=== PATIENT | female | born 1950 | race Caucasian/White ===

== ENCOUNTER 2024-02-22 19:58 | Emergency (ER) | payer MEDICARE, BC, SELFPAY ==
[2024-02-22] VITALS (24 sets, daily range): BP systolic 184–233; BP diastolic 90–119; BMI 25.3
[2024-02-22 20:29] LABS: % Basophils 0.6 % (0-2); % Eosinophils 2.2 % (0-6); % Immature Granulocytes 0.3 % (0-0.5); % Lymphocytes 43.9 % (20.5-51.1); % Monocytes 8.8 % (1.7-9.3); % Neutrophils 44.2 % (42.2-75.2); Absolute Eosinophils 0.1 10^3/uL (0-0.7); Absolute Lymphocytes 2.9 10^3/uL (1.2-3.4); Absolute Monocytes 0.6 10^3/uL (0.1-0.6); Absolute Neutrophils 2.9 10^3/uL (1.4-6.5); Hematocrit 36.9 % (37.0-47.0); Hemoglobin 12.2 g/dL (12.0-16.0); Mean Corp Hgb Conc. 33.1 g/dL (33.0-37.0); Mean Corpuscular Hgb 28.7 pg (27.0-31.0); Mean Corpuscular Volume 86.8 fL (81.0-99.0); Mean Platelet Volume 10.4 fL (7.4-10.4); Nucleated Red Blood Cells % 0 %; Platelet Count 236 10^3/uL (130-400); Red Blood Cell Count 4.25 10^6/uL (4.20-5.40); Red Cell Dist. Width 14.3 % (11.5-14.5); White Blood Cell Count 6.5 10^3/uL (4.8-10.8)
[2024-02-22 20:41] LABS: ALT (SGPT) 18 U/L (0-35); AST (SGOT) 27 U/L (14-36); Albumin 4.5 g/dl (3.5-5.0); Alkaline Phosphatase 128 U/L (38-126); Blood Urea Nitrogen 24 mg/dl (7-17); Calcium 10.1 mg/dl (8.4-10.2); Carbon Dioxide 25 mmol/L (22-30); Chloride 104 mmol/L (98-107); Estimated Creatinine Clearance 39 ml/min; Glucose 101 mg/dl (70-99); Potassium 4.4 mmol/L (3.5-5.1); Sodium 141 mmol/L (135-145); Total Bilirubin 0.4 mg/dl (0.2-1.3); Total Protein 7.2 g/dl (6.3-8.2)
[2024-02-22] MEDS: ZOFRAN 4 MG IV (21:15)
[2024-02-22] MEDS: DILAUDID 0.5 MG IV ×2 (21:15→22:17)
--- NOTE | 2024-02-22 21:43 | ED.GENMED ---
History of Present Illness
General
Chief Complaint: Fall
Time Seen by Provider: 02/22/24 20:58
History of Present Illness
History of Present Illness:
TIME OF INITIAL ENCOUNTER: 9:30 PM
HPI: Patient came in by ambulance as she was at her daughter's house and missed the last step due to poor lighting. She primarily complains of pain at the left humerus region. She denies any other injury. She denies striking her head. The pain
is described as severe. She has no chest or abdominal pain.
EXAM:
GENERAL: Well appearing but in moderate distress due to pain
CERVICAL SPINE: No midline c-spine tenderness with excellent AROM
HEAD: No evidence of craniofacial trauma
CHEST: No chest wall tenderness, normal heart sounds
LUNGS: Equal lung sounds, no respiratory distress
ABDOMEN: No abdominal tenderness, no peritoneal signs
EXTREMITIES: Markedly decreased active range of motion at the left shoulder due to pain, there is no evidence of dislocation, there is marked tenderness to the mid and proximal left humerus
NEURO: Excellent strength all extremities, appropriate mental status, normal speech/language
NUMBER AND COMPLEXITY OF PROBLEMS ADDRESSED AT THE ENCOUNTER
� Chronic conditions affecting care: High blood pressure
� Acute Exacerbation and/or Progression of Chronic Illness: This is an acute problem
� Differential Diagnosis includes: Humerus fracture, proximal humerus/shoulder fracture
AMOUNT AND/OR COMPLEXITY OF DATA TO BE REVIEWED AND ANALYZED
� I performed an independent evaluation of and my interpretation is:
EKG:
CT:
X-rays: X-ray shows displaced angulated midshaft fracture of the left humerus
Laboratory Studies: CBC is unremarkable, creatinine 1.2
Other:
� Review of other/old records: No old records available for review
� Clinical information was obtained by an independent historian: I spoke to the daughter at bedside
� Prescriptions/Medications Considered but not given:
� Further testing considered but not performed:
RISK OF COMPLICATIONS AND/OR MORBIDITY OR MORTALITY OF PATIENT MANAGEMENT
� Social determinants of health affecting care: Lives at home
� Discussion with other providers: Sent message to Dr. Simmons, on-call for Linda (family preference)�no return message
� Escalation of care including admission/observation vs risk of discharge considered: The patient was initially given IV Dilaudid for pain.
ANY OTHER UPDATES:
11:11 PM: Procedural sedation was used and I reduced the midshaft the left humerus fracture.
12 AM: Although the patient does have some ongoing pain she is neurovascularly intact with no sensory or distal motor deficits
Phy Exam
Physical Exam
Physical Exam:
See HPI
Course
Orders/Labs/Results
Orders:
Orders
02/22/24 20:21
CMP [Comprehensive Metabolic Panel] Urgent
Complete Blood Count/With Diff Urgent
02/22/24 20:26
CR Humerus - Left Min 2 Views* Urgent
Comment:
Reason For Exam: S/P fall left upper arm pain
Shoulder, Left, Trauma CR [CR Shoulder, Trauma - Left] Urgent
Comment:
Reason For Exam: S/P fall left upper arm pain.
02/22/24 20:58
HYDROmorphone [Dilaudid] 0.5 mg IV NOW STA
Ondansetron Injectable [Zofran] 4 mg IV NOW STA
02/22/24 21:43
HYDROmorphone [Dilaudid] 0.5 mg IV NOW STA
02/22/24 22:49
Propofol [Diprivan] 20 ml .ROUTE .STK-MED
02/22/24 23:18
Humerus, Left 2 Views [CR Humerus - Left Min 2 Views*] Urgent
Comment: portable
Reason For Exam: post reduction
Abnormal Lab Results
02/22/24
20:21
Hct 36.9 L %
(37.0-47.0)
BUN 24 H mg/dl
(7-17)
Creatinine 1.2 H mg/dL
(0.6-1.0)
Glucose 101 H mg/dl
(70-99)
Alkaline Phosphatase 128 H U/L
(38-126)
02/22/24 20:21
02/22/24 20:21
Vital Signs
Initial and Last Documented VS:
Initial Vital Signs
BP
231/109
02/22/24 20:01
Last Documented Vital Signs
Temp Pulse Resp BP Pulse Ox
97.7 F 81 22 205/107 98
02/22/24 23:37 02/22/24 23:52 02/22/24 23:52 02/22/24 23:52 02/22/24 23:52
Procedures
Moderate Sedation
ASA Risk Score: Class III
Chart and allergies reviewed: Yes
Consent for anesthesia obtained: Yes
Time out completed (validating right patient & procedure): Yes
Moderate Sedation Start Time(when first medication is given): 23:11
History of difficult intubation: No
Airway free of obstruction: Yes
Patient has a gag reflex: Yes
Patient is able to open mouth: Yes
Patient has no dentures: Yes
Patient has no loose teeth: Yes
Medication administered by Provider during Moderate Sedation: IV Propofol (mg)
Total dose administered: 40
Time drug administered: 23:12
Moderate Sedation Procedure End Time: 23:22
Joint/Fracture Reduction
Left Arm:
Indication for procedure:: Angulated humerus fx
Procedure completed by: Va, Dr. Clayton
Consent form signed: No
If no, reason: Emergency procedure
Joint reduced: with anesthesia sedation
Injury was: closed
Further treatement: needs further treatment
Post reduction exam: stable
Normal distal neurovascular exam?: Yes
Additional information:
Coaptation splint
*Critical Care Note
Total Time (30-74mins, 75-104mins- exclusive of procedures): Not Applicable
ED Attending Note
-
Portions of this chart may have been created with voice recognition software.� Occasional wrong word or��sound alike� substitutions may have occurred due to the inherent limitations of voice recognition software.
Discharge Plan
Departure
Patient Disposition: Home (Routine Discharge)
Date of Disposition: 02/22/24
Time of Disposition: 23:57
Patient with high blood pressure during this ER visit?: Yes
Discharge Problem:
Closed fracture of humerus, shaft
Instructions: Upper Arm Fracture ED, BLOOD PRESSURE
Prescriptions:
New
oxycodone-acetaminophen [Percocet] 5-325 mg tablet
1 tab PO Q6HPRN PRN (Reason: pain) Qty: 14 0RF
Referrals:
Mitchell Simmons MD [Active] - Next open appointment
Wood Narayanan, DO [Family Provider] -
Ciaran Landis MD [Active] - Next open appointment
Activity Restrictions/Additional Instructions:
Follow-up with orthopedics such as Dr. Simmons ([facility]) or with Dr. Landis ([facility]). Take Advil or Tylenol for mild pain. I did send a prescription for Percocet to your pharmacy. I recommend taking something like MiraLAX if you take
Percocet.
Interventions
Interventions:
*Risk Screen - Suicide Last Done: 02/22/24 20:12
*General Assessment Last Done: 02/22/24 20:12
*Neglect/Abuse Screening Last Done: 02/22/24 20:12
*ED COVID-19 Vaccine History Last Done: 02/22/24 20:12
ED-Musculoskeletal Assessment Last Done: 02/22/24 20:12
ED- Neurological Assessment Last Done: 02/22/24 23:05
ED-Skin Assessment Last Done: 02/22/24 23:05
Discharge Date and Time
Print Language: ERITREAN
[2024-02-23 00:36] VITALS: BP 161/100
[2024-02-23] MEDS: PERCOCET 5/325 2 TABLET PO (00:36)
== END 2024-02-23 00:58 | disposition home or self-care (01) ==
LOC: EMR 19:58
PROVIDERS: Radiology Neuroradiology; EMERGENCY PHYSICIAN Emergency Medicine; FAMILY PHYSICIAN Family Medicine
DX: S42.202A Unspecified fracture of upper end of left humerus, initial encounter for closed fracture (principal); W19.XXXA Unspecified fall, initial encounter
CPT/HCPCS: 99283; 23605; 99152; 96374; 96375; 96376; 73030; 73060; 80053; 85025

== ENCOUNTER 2024-02-24 18:21 | Emergency (ER) | payer MEDICARE, BC, SELFPAY ==
[2024-02-24 18:28] VITALS: BP 130/80
--- NOTE | 2024-02-24 19:35 | ED.GENMED ---
History of Present Illness
General
Chief Complaint: Musculo-Skeletal Complaint
Time Seen by Provider: 02/24/24 19:19
History of Present Illness
History of Present Illness:
Patient is a 74-year-old woman who is otherwise healthy presenting to the emergency department with arm swelling. Per chart review patient was diagnosed with a midshaft humerus fracture on February 21 and had it reduced and splinted and was sent
home. 2 days ago she noticed worsening swelling and it worsened yesterday as well. She did hear a pop yesterday as well. She now reports significant pain numbness tingling and worsening swelling to the entire left arm. She has taken Percocet
without any relief. She is not on any blood thinners.
Phy Exam
Physical Exam
Physical Exam:
GENERAL: in no acute distress
HEENT: normocephalic, extraocular movements intact, moist oral mucosa
NECK: normal inspection
RESPIRATORY: no respiratory distress, clear to auscultation bilaterally
CARDIOVASCULAR: regular rate and rhythm
ABDOMEN/: soft, non-distended, non-tender to palpation, no rebound or guarding
EXTREMITIES: Left upper extremity with diffuse 2+ pitting edema with significant tenderness all throughout the upper extremity, compartments are soft though exquisitely tender, decreased sensation to the entire extremity, 2+ radial pulse, normal cap
refill, superficial blister in the medial aspect of the upper extremity likely related to pressure and splint placement
NEUROLOGIC: awake and alert, moves all extremities
SKIN: warm
Course
Orders/Labs/Results
Orders:
Orders
02/24/24 19:30
CR Elbow - Left Min 2 View Urgent
Comment:
Reason For Exam: pain
CR Humerus - Left Min 2 Views* Urgent
Comment:
Reason For Exam: pain
Periph Venous Upr Ext Left US [US Periph Venous UPPER Ext LT] Urgent
Comment:
Reason For Exam: arm swelling
02/24/24 19:31
HYDROmorphone [Dilaudid] 0.5 mg IV NOW STA
02/24/24 21:46
HYDROmorphone [Dilaudid] 0.5 mg .ROUTE .STK-MED ONE
HYDROmorphone [Dilaudid] 0.5 mg IV NOW STA
Vital Signs
Initial and Last Documented VS:
Initial Vital Signs
Temp Pulse Resp BP Pulse Ox
97.6 F 104 18 130/80 95
02/24/24 18:28 02/24/24 18:28 02/24/24 18:28 02/24/24 18:28 02/24/24 18:28
Last Documented Vital Signs
Temp Pulse Resp BP Pulse Ox
97.6 F 104 18 130/80 95
02/24/24 18:28 02/24/24 18:28 02/24/24 18:28 02/24/24 18:28 02/24/24 18:28
MDM/Problems Addressed
Differential Diagnosis Includes:
Patient is a 74-year-old woman with recent humeral shaft fracture presenting to the emergency department worsening swelling pain and decreased sensation. Vitals are notable for heart rate in the low 100s likely from pain. Exam does show
significant swelling tenderness throughout the entire upper extremity as well as a blister at the medial aspect of the arm where the splint was. 2+ distal pulses. Patient does have pain paresthesia as well as decrease sensation the compartments
are soft but I am concerned about possible compartment syndrome. Will reach out to orthopedic surgery. It is reassuring that the pain significantly did improve after the Diaz wrap was taken down. Could also be redisplacement of the arm given the
problems will obtain x-ray. Could be DVT or occlusion of the vein from the fracture piece so will check ultrasound. Will pain control.
*Critical Care Note
Total Time (30-74mins, 75-104mins- exclusive of procedures): Not Applicable
Update Note
Update Note:
On reevaluations patient's pain is much more improved. I did discuss with on-call orthopedics who states is likely from the fracture itself he has low suspicion for compartment syndrome. He did recommend movement at the elbow to help with the
numbness as well as elevation and ice which I did relay to the patient and her family member. He also recommended following up with Dr. Leyva.
On reevaluation patient swelling has slightly improved. X-ray per my interpretation of the elbow is without any acute fracture. DVT study is negative. We will rewrap the splint and make sure it is loose to help with the swelling. Strict return
precautions given. Pain control regimen discussed. Patient only has a few of her initial Percocets remaining so we will represcribe additional oxycodone.
ED Attending Note
-
Portions of this chart may have been created with voice recognition software.� Occasional wrong word or��sound alike� substitutions may have occurred due to the inherent limitations of voice recognition software.
Discharge Plan
Departure
Patient Disposition: Home (Routine Discharge)
Date of Disposition: 02/24/24
Time of Disposition: 21:46
Patient with high blood pressure during this ER visit?: No
Discharge Problem:
Swelling, Fracture, humerus
Instructions: Using Cold for Pain, Splint Care
Prescriptions:
New
oxycodone 5 mg tablet
5 mg PO Q6H PRN (Reason: Pain) Qty: 7 0RF
No Action
oxycodone-acetaminophen [Percocet] 5-325 mg tablet
1 tab PO Q6HPRN PRN (Reason: pain) Qty: 14 0RF
Referrals:
Angelo Hays MD [Family Provider] -
Javan Leyva MD [Active] -
Activity Restrictions/Additional Instructions:
You were seen in the Emergency Department today for arm swelling. While you were here we repeated your x-rays as well as obtained an ultrasound which was negative. We did readjust your splint. Please follow-up with the orthopedic surgeon
discussed. Please take the medications as we discussed.
We would like for you to follow up with your primary care physician for further evaluation. If you experience fever, worsening of your symptoms, or develop any other new or concerning symptoms, please return to the Emergency Department immediately.
Please see the attached sheet for additional information.
Interventions
Interventions:
*Risk Screen - Suicide Last Done: 02/24/24 18:28
*General Assessment Last Done: 02/24/24 18:28
*Neglect/Abuse Screening Last Done: 02/24/24 18:28
ED-Musculoskeletal Assessment Last Done: 02/24/24 18:52
Discharge Date and Time
Print Language: MONGOLIAN
[2024-02-24] MEDS: DILAUDID 0.5 MG IV ×2 (19:47→22:04)
[2024-02-24 21:57] VITALS: BP 132/76
[2024-02-24] MEDS: TYLENOL 650 MG PO (22:40)
== END 2024-02-24 22:49 | disposition home or self-care (01) ==
LOC: EMR 18:21
PROVIDERS: EMERGENCY PHYSICIAN Student in an Organized Health Care Education/Training Program; FAMILY PHYSICIAN Family Medicine
DX: S42.392A Other fracture of shaft of left humerus, initial encounter for closed fracture (principal); R22.32 Localized swelling, mass and lump, left upper limb; X58.XXXA Exposure to other specified factors, initial encounter; M79.602 Pain in left arm; R20.0 Anesthesia of skin; R20.2 Paresthesia of skin; Z88.1 Allergy status to other antibiotic agents; Z88.2 Allergy status to sulfonamides; Z88.8 Allergy status to other drugs, medicaments and biological substances
CPT/HCPCS: 99284; 96374; 96376; 73060; 73070; 93971

== ENCOUNTER → 2024-02-26 12:52 | Outpatient (REF) | payer MEDICARE, BC, SELFPAY ==
[2024-02-26 14:58] LABS: Blood Urea Nitrogen 22 mg/dl (7-17); Carbon Dioxide 25 mmol/L (22-30); Chloride 103 mmol/L (98-107); Glucose 113 mg/dl (70-99); Potassium 4.3 mmol/L (3.5-5.1); Sodium 138 mmol/L (135-145)
[2024-02-26 15:05] LABS: Hematocrit 31.5 % (37.0-47.0); Hemoglobin 10.5 g/dL (12.0-16.0); Mean Corp Hgb Conc. 33.3 g/dL (33.0-37.0); Mean Corpuscular Hgb 29.9 pg (27.0-31.0); Mean Corpuscular Volume 89.7 fL (81.0-99.0); Mean Platelet Volume 11.2 fL (7.4-10.4); Platelet Count 215 10^3/uL (130-400); Red Blood Cell Count 3.51 10^6/uL (4.20-5.40); Red Cell Dist. Width 14.2 % (11.5-14.5); White Blood Cell Count 6.2 10^3/uL (4.8-10.8)
== END ==
LOC: SDSPAT 12:52
PROVIDERS: ATTENDING PHYSICIAN Orthopaedic Surgery Hand Surgery; FAMILY PHYSICIAN Family Medicine
DX: Z01.818 Encounter for other preprocedural examination (principal)
CPT/HCPCS: 36415; 80048; 85027; 93005

== ENCOUNTER 2024-02-27 06:48 | Day surgery (SDC) | payer MEDICARE, BC, SELFPAY ==
[2024-02-26 14:08] VITALS: BMI 26.6
[2024-02-27] VITALS (12 sets, daily range): BP systolic 136–185; BP diastolic 71–126; BMI 26.6; BMI 27.1
[2024-02-27] MEDS: ZOFRAN 4 MG IV ×2 (14:03→19:52)
[2024-02-27] MEDS: NORMOSOL-R/PLASMALYTE-A 1000 IV (14:19)
[2024-02-27] MEDS: TYLENOL 500 MG PO (15:06)
[2024-02-27] MEDS: TYLENOL 650 MG PO ×2 (20:09→23:48)
[2024-02-27] MEDS: ANCEF 5 IV (20:18)
[2024-02-27] MEDS: COLACE 100 MG PO (21:06)
[2024-02-27] MEDS: SENOKOT 17.2 MG PO (21:06)
[2024-02-27] MEDS: LOW STRENGTH ASPIRIN 81 MG PO (21:06)
[2024-02-27] MEDS: APRESOLINE 5 MG IV (22:25)
[2024-02-28] VITALS (7 sets, daily range): BP systolic 101–151; BP diastolic 63–91; O2SAT 97–98
[2024-02-28] MEDS: TYLENOL 650 MG PO ×5 (04:11→20:09)
[2024-02-28] MEDS: ANCEF 5 IV (04:11)
--- NOTE | 2024-02-28 07:53 | W.PN.ORTHO ---
Today's Communication / Plan
-
Sling left upper extremity
Nonweightbearing left upper extremity
Ice with elevation to control edema/pain
Range of motion exercises reviewed with patient
Fracture blister upper arm suggest it to be cleaned once a day and nonadherent dressing until it heals
Doxycycline protocol
Pain control regimen discussed with patient
Follow-up next week to check fracture blister
Labs ordered this morning
Consult case management for dispo planning today
Discharge to home following labs
Assessment
.
Distal Motor Intact: Yes
Dressing:
Clean, dry and intact.
Plan
.
Surgery / Date: ORIF left humerus 02/26 [place]
DVT Prophylaxis: Aspirin
Activity:
Out of bed.
PT/OT
Discharge Plan: Home
Subjective
.
.:
Patient resting comfortably.
Vital Signs and Labs
.
Vital Signs and Labs:
Temp Pulse Resp BP Pulse Ox
98.4 F 90 14 151/91 97
02/28/24 02:51 02/28/24 02:51 02/28/24 02:51 02/28/24 02:51 02/28/24 02:51
--- NOTE | 2024-02-28 07:57 | W.DS.TRANS ---
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
-
Discharge Instructions:
Sleep Apnea Risk Intermediate
Discharge Diagnosis/Procedures Open reduction internal fixation left humerus
Diet As tolerated
Additional Activity Sling-do not bear weight left arm
Driving Restrictions No driving
Bathing Restrictions OK to Shower
Wound Care Aquacel dressing in place-fracture blister upper
arm-clean daily with warm soapy water, dry well
, nonadherent bandage and light dressing
Instructions:
Stand-Alone Forms:
Changes to Home Medications: No
Discharge Medications:
DC Medications w/original date entered in [facility]
oxycodone 5 mg tablet 5 mg PO Q6H PRN Pain #7 tabs 02/24/24
bupropion HCl 300 mg 24 hr tablet, extended release 300 mg PO DAILY 02/26/24
cholecalciferol (vitamin D3) 125 mcg (5,000 unit) tablet (Vitamin D3) 125 mcg PO DAILY 02/26/24
ginkgo biloba 1 dose PO DAILY 02/26/24
ibuprofen 200 mg tablet (Advil) 600 mg PO Q6H PRN pain 02/26/24
lisinopril 20 mg tablet 20 mg PO DAILY 02/26/24
mecobalamin (vitamin B12) 5,000 mcg chewable tablet 5,000 mcg PO DAILY 02/26/24
omeprazole magnesium 20 mg tablet,delayed release (Prilosec OTC) 20 mg PO PRN PRN GERD 02/26/24
Tylenol 500 mg PO Q6H PRN pain 02/27/24
acetaminophen 500 mg capsule 1,000 mg (2 x 500 mg) PO Q6H PRN Pain #60 caps 02/28/24
aspirin 325 mg tablet 325 mg PO DAILY #30 tabs 02/28/24
docusate sodium 100 mg capsule (Colace) 100 mg PO BID #14 caps 02/28/24
doxycycline hyclate 100 mg capsule 100 mg PO BID #6 caps 02/28/24
sennosides 8.6 mg tablet (Senokot) 8.6 mg PO BID PRN Constipation #14 tabs 02/28/24
Home Medication Changes
Pending Results: Yes
[2024-02-28] MEDS: COLACE 100 MG PO ×2 (08:22→20:09)
[2024-02-28] MEDS: MOBIC 15 MG PO (08:22)
[2024-02-28] MEDS: WELLBUTRIN XL (24 hour extended release) 300 MG PO (08:22)
[2024-02-28] MEDS: VITAMIN B-12 5000 MCG PO (08:22)
[2024-02-28] MEDS: LOW STRENGTH ASPIRIN 81 MG PO ×2 (08:22→20:09)
[2024-02-28] MEDS: SENOKOT 17.2 MG PO ×2 (08:22→20:09)
[2024-02-28] MEDS: ZESTRIL 20 MG PO (08:23)
[2024-02-28] MEDS: VITAMIN D3 (cholecalciferol) 125 MCG PO (08:23)
--- NOTE | 2024-02-28 15:54 | VNURNOTE ---
Home Health Liaison spoke with patient's daughter David to discuss [facility] nurse/therapy, visits, schedule and homebound status. She is agreeable and understands that visits at home will be 2-3 x per week to assess and teach medical management.
[facility] contact information provided. Daughter is aware that [facility] will contact them for start of care in 1-2 days after discharge from .
[facility] referral accepted in [facility].
[2024-02-28 18:45] LABS: Hematocrit 28.1 % (37.0-47.0); Hemoglobin 9.8 g/dL (12.0-16.0)
[2024-02-28] MEDS: ROXICODONE 5 MG PO (20:09)
[2024-02-29] MEDS: TYLENOL 650 MG PO ×4 (00:04→13:55)
[2024-02-29] MEDS: ROXICODONE 5 MG PO (03:13)
[2024-02-29 07:05] VITALS: BP 155/80
[2024-02-29 07:36] LABS: Hematocrit 28.2 % (37.0-47.0); Hemoglobin 9.4 g/dL (12.0-16.0); Mean Corp Hgb Conc. 33.3 g/dL (33.0-37.0); Mean Platelet Volume 10.7 fL (7.4-10.4); Platelet Count 241 10^3/uL (130-400); Red Blood Cell Count 3.24 10^6/uL (4.20-5.40); Red Cell Dist. Width 14.4 % (11.5-14.5); White Blood Cell Count 5.6 10^3/uL (4.8-10.8)
--- NOTE | 2024-02-29 07:58 | W.PN.ORTHO ---
Today's Communication / Plan
-
74F POD1 Left humerus ORIF with Dr. Leyva
Sling left upper extremity when ambulating- may take breaks from her sling when at rest and for hygiene
Nonweightbearing left upper extremity; may use walker for balance but no axial loading
Ice with elevation to control edema/pain; consider edema glove at night
Range of motion exercises reviewed with patient; elbow wrist and hand ROM to prevent stiffness
Fracture blister upper arm suggest it to be cleaned once a day and nonadherent dressing until it heals; may remove dressing POD3
Doxycycline protocol
Pain control regimen discussed with patient
Follow-up next week to check fracture blister in clinic
Labs WNL
Consult case management for dispo planning today; SNF/ARF vs home VN/PT
Assessment
.
Distal Motor Intact: Yes
Dressing:
Clean, dry and intact.
Plan
.
Surgery / Date: ORIF left humerus 02/26 [place]
DVT Prophylaxis: Aspirin
Activity:
Out of bed.
PT/OT
Subjective
.
.:
Patient resting comfortably. Reports some anxiety with discharge
Vital Signs and Labs
.
Vital Signs and Labs:
Lab Results
02/29/24 05:55
Temp Pulse Resp BP Pulse Ox
98.3 F 80 16 147/68 95
02/28/24 23:00 02/28/24 23:00 02/28/24 23:00 02/28/24 23:00 02/28/24 23:00
[2024-02-29 08:09] LABS: Blood Urea Nitrogen 31 mg/dl (7-17); Calcium 8.6 mg/dl (8.4-10.2); Carbon Dioxide 25 mmol/L (22-30); Chloride 101 mmol/L (98-107); Estimated Creatinine Clearance 35 ml/min; Glucose 91 mg/dl (70-99); Potassium 4.3 mmol/L (3.5-5.1); Sodium 137 mmol/L (135-145); eGFR 39.73
[2024-02-29] MEDS: ZESTRIL 20 MG PO (09:58)
[2024-02-29] MEDS: VITAMIN D3 (cholecalciferol) 125 MCG PO (09:59)
[2024-02-29] MEDS: VITAMIN B-12 5000 MCG PO (09:59)
[2024-02-29] MEDS: MOBIC 15 MG PO (09:59)
[2024-02-29] MEDS: WELLBUTRIN XL (24 hour extended release) 300 MG PO (09:59)
[2024-02-29] MEDS: SENOKOT 17.2 MG PO (10:00)
[2024-02-29] MEDS: COLACE 100 MG PO (10:00)
[2024-02-29] MEDS: LOW STRENGTH ASPIRIN 81 MG PO (10:00)
--- NOTE | 2024-02-29 11:18 | CM ---
Patient seen today.
Ambulating in halls with PT.
Recommending home health.
Referral to [facility] who accepted
PLAN: Home with [facility]
daughter to transport
[2024-02-29 11:33] VITALS: BP 131/84; PULSE 99
--- NOTE | 2024-02-29 12:54 | W.DCSUMMARY ---
Discharge Summary
Discharge Data
Date of Admission: 02/27/24
Date of Discharge: 02/29/24
Total time spent discharging patient (in min): 30
-
Pending Results: No
Hospital Course
The patient underwent left humeral shaft ORIF with Dr. Leyva without complications. The patient recovered in PACU and was transferred to the floor. The post-operative course remained uncomplicated. At the time of discharge, the patient was noted
to be tolerating a regular diet, ambulating with adherence to weight bearing and activity restrictions, able to accomplish activities of daily living at baseline level, and had pain controlled on oral medications. Prior to discharge, the patient
was provided with appropriate discharge/follow up/return instructions, and discharge medications. She is planned for visiting nursing/therapy and assistance from her daughter will plan follow-up in the clinic in 1 week
Discharge Plan
-
Patient Disposition: Home (Routine Discharge)
Discharge Diagnosis/Procedures: Open reduction internal fixation left humerus
Condition: Good
Diet: As tolerated
Additional Activity: Sling when ambulating/active -do not bear weight with the left arm
Driving Restrictions: No driving
Bathing Restrictions: Ok to shower after cotton wrap taken down postop d
Wound Care: Aquacel dressing in place-fracture blister upper arm-clean daily with warm soapy water, dry well , nonadherent bandage and light dressing beginning postoperative day 3
Referrals:
Angelo Cervantes PA-C [Specified Professional Personl] -
UNKNOWN,NO INTERVIEW [Family Provider] - 03/05/24 (check fracture blister)
Prescriptions:
New
sennosides [Senokot] 8.6 mg tablet
8.6 mg PO BID PRN (Reason: Constipation) Qty: 14 0RF
aspirin 325 mg tablet
325 mg PO DAILY Qty: 30 0RF
docusate sodium [Colace] 100 mg capsule
100 mg PO BID Qty: 14 0RF
acetaminophen 500 mg capsule
1,000 mg PO Q6H MDD 4000mg PRN (Reason: Pain) Qty: 60 0RF
doxycycline hyclate 100 mg capsule
100 mg PO BID Qty: 6 0RF
Continued
oxycodone 5 mg tablet
5 mg PO Q6H PRN (Reason: Pain) Qty: 7 0RF
lisinopril 20 mg Tablet
20 mg PO DAILY
omeprazole magnesium [Prilosec OTC] 20 mg Tablet,Delayed Release (Dr/Ec)
20 mg PO PRN PRN (Reason: GERD)
bupropion HCl 300 mg Tablet Extended Release 24 Hr
300 mg PO DAILY
cholecalciferol (vitamin D3) [Vitamin D3] 125 mcg (5,000 unit) Tablet
125 mcg PO DAILY
mecobalamin (vitamin B12) 5,000 mcg Tablet,Chewable
5,000 mcg PO DAILY
ibuprofen [Advil] 200 mg Tablet
600 mg PO Q6H PRN (Reason: pain)
ginkgo biloba
1 dose PO DAILY
Tylenol
500 mg PO Q6H PRN (Reason: pain)
Discharge Orders:
Discharge Patient (As Directed); Ordered 02/29/24
Ordered By: Lee Dick
Discharge Date and Time
Print Language: YORUBA
[2024-02-29 14:57] VITALS: BP 156/91
== END 2024-02-29 15:18 | disposition home or self-care (01) ==
LOC: SDS 06:48
PROVIDERS: Physician Assistant Surgical; ATTENDING PHYSICIAN Orthopaedic Surgery Hand Surgery
DX: S42.352A Displaced comminuted fracture of shaft of humerus, left arm, initial encounter for closed fracture (principal); X58.XXXA Exposure to other specified factors, initial encounter
CPT/HCPCS: 23615; C1713; 73060; 76000; 80048; 85014; 85018; 85027; 97110; 97163; 97167; 97530; 97535

== ENCOUNTER 2024-04-02 13:53 | Emergency (ER) | payer MEDICARE, BC, SELFPAY ==
[2024-04-02 13:55] VITALS: BP 165/109
[2024-04-02 14:24] LABS: % Basophils 0.7 % (0-2); % Eosinophils 2.6 % (0-6); % Immature Granulocytes 0.3 % (0-0.5); % Lymphocytes 36.9 % (20.5-51.1); % Monocytes 8.4 % (1.7-9.3); % Neutrophils 51.1 % (42.2-75.2); Absolute Eosinophils 0.2 10^3/uL (0-0.7); Absolute Lymphocytes 2.1 10^3/uL (1.2-3.4); Absolute Monocytes 0.5 10^3/uL (0.1-0.6); Hematocrit 35.9 % (37.0-47.0); Hemoglobin 11.5 g/dL (12.0-16.0); Mean Corpuscular Hgb 29.8 pg (27.0-31.0); Mean Platelet Volume 10.7 fL (7.4-10.4); Nucleated Red Blood Cells % 0 %; Platelet Count 255 10^3/uL (130-400); Red Blood Cell Count 3.86 10^6/uL (4.20-5.40); Red Cell Dist. Width 14.1 % (11.5-14.5); White Blood Cell Count 5.8 10^3/uL (4.8-10.8)
[2024-04-02 14:36] LABS: ALT (SGPT) 29 U/L (0-35); AST (SGOT) 31 U/L (14-36); Albumin 4.3 g/dl (3.5-5.0); Alkaline Phosphatase 137 U/L (38-126); Blood Urea Nitrogen 24 mg/dl (7-17); Calcium 9.5 mg/dl (8.4-10.2); Carbon Dioxide 26 mmol/L (22-30); Chloride 105 mmol/L (98-107); Glucose 88 mg/dl (70-99); Potassium 4.3 mmol/L (3.5-5.1); Sodium 141 mmol/L (135-145); Total Bilirubin 0.3 mg/dl (0.2-1.3); eGFR 53.06
--- NOTE | 2024-04-02 16:18 | ED.GENMED ---
History of Present Illness
<America Smith PA-C - Last Filed: 04/02/24 19:28>
General
Chief Complaint: Blood Pressure Problem
Source: patient
Exam Limitations: none
Time Seen by Provider: 04/02/24 16:17
Nursing documentation reviewed up to this point in time: agreed with
History of Present Illness
History of Present Illness:
This is a 74 y/o female with pmh of htn, GERD, IBS, anxiety disorder presents emergency department today with concerns of asymptomatic hypertension. Patient states that her blood pressure has been fluctuating for the past month. Patient states
that she had surgery last month after fracturing her humerus and states that she has had home nursing care. She reports that the home nurses have been tracking her blood pressure and keeping a log of it when they have been checking her vitals and
that they have noticed that it has been elevated. Patient notes that her baseline blood pressure in the 130s to 140s systolically. Patient is managed on 20 mg of lisinopril daily. She takes no other medication to her for her blood pressure. She
denies any recent adjustments to her regimen. Of note, her pain was well managed with Tylenol and Ibuprofen until recently when she was told to stop the ibuprofen because of her BP running higher. Patient states that the tylenol does not do
anything for her pain. Patient does have narcotics at home but is afraid to take them because she is concerned that they will make her drowsy and slurr her words. Patient denies chest pain, shortness of breath, visual changes, abdominal pain,
headache, fevers or chills.
Review of Systems
<America Smith PA-C - Last Filed: 04/02/24 19:28>
Review of Systems
All Other Systems: ROS reviewed and negative except as documented in HPI and ROS
Phy Exam
<America Smith PA-C - Last Filed: 04/02/24 19:28>
Physical Exam
Physical Exam:
General: Patient is well appearing and in no acute distress; non-toxic
Skin: Warm and dry, no rashes or lesions
Head: Normocephalic, atraumatic
Eyes: Sclera non-icteric. EOMs intact. PERRLA.
Cardiac: Regular rate and rhythm, no murmurs
Peripheral Vascular: No lower extremity swelling or edema
Pulm: Normal respiratory effort, no wheezes, rales, rhonchi
Abdomen: No abdominal tenderness to palpation
Neuro: CN II-XII intact, no focal neurologic deficits.
Psychiatric: Appropriate mood and affect.
Course
<America Smith PA-C - Last Filed: 04/02/24 19:28>
Orders/Labs/Results
Orders:
Orders
04/02/24 14:05
CMP [Comprehensive Metabolic Panel] Urgent
Complete Blood Count/With Diff Urgent
04/02/24 16:17
Electrocardiogram (*1) Urgent
Reason for Study: Other
Other Reason for Exam: htn
EKG- Treatment ONCE
Abnormal Lab Results
04/02/24
14:05
RBC 3.86 L 10^6/uL
(4.20-5.40)
Hgb 11.5 L g/dL
(12.0-16.0)
Hct 35.9 L %
(37.0-47.0)
MCHC 32.0 L g/dL
(33.0-37.0)
MPV 10.7 H fL
(7.4-10.4)
BUN 24 H mg/dl
(7-17)
Creatinine 1.1 H mg/dL
(0.6-1.0)
Alkaline Phosphatase 137 H U/L
(38-126)
04/02/24 14:05
04/02/24 14:05
Vital Signs
Initial and Last Documented VS:
Initial Vital Signs
Temp Pulse Resp BP Pulse Ox
36.9 C 85 16 165/109 99
04/02/24 13:55 04/02/24 13:55 04/02/24 13:55 04/02/24 13:55 04/02/24 13:55
Last Documented Vital Signs
Temp Pulse Resp BP Pulse Ox
36.9 C 82 20 202/113 98
04/02/24 13:55 04/02/24 17:15 04/02/24 17:15 04/02/24 17:00 04/02/24 17:23
<Cy Padilla MD - Last Filed: 04/02/24 19:55>
Orders/Labs/Results
Orders:
Orders
04/02/24 14:05
CMP [Comprehensive Metabolic Panel] Urgent
Complete Blood Count/With Diff Urgent
04/02/24 16:17
Electrocardiogram (*1) Urgent
Reason for Study: Other
Other Reason for Exam: htn
EKG- Treatment ONCE
Abnormal Lab Results
04/02/24
14:05
RBC 3.86 L 10^6/uL
(4.20-5.40)
Hgb 11.5 L g/dL
(12.0-16.0)
Hct 35.9 L %
(37.0-47.0)
MCHC 32.0 L g/dL
(33.0-37.0)
MPV 10.7 H fL
(7.4-10.4)
BUN 24 H mg/dl
(7-17)
Creatinine 1.1 H mg/dL
(0.6-1.0)
Alkaline Phosphatase 137 H U/L
(38-126)
04/02/24 14:05
04/02/24 14:05
Vital Signs
Initial and Last Documented VS:
Initial Vital Signs
Temp Pulse Resp BP Pulse Ox
36.9 C 85 16 165/109 99
04/02/24 13:55 04/02/24 13:55 04/02/24 13:55 04/02/24 13:55 04/02/24 13:55
Last Documented Vital Signs
Temp Pulse Resp BP Pulse Ox
36.9 C 82 20 202/113 98
04/02/24 13:55 04/02/24 17:15 04/02/24 17:15 04/02/24 17:00 04/02/24 17:23
<America Smith PA-C - Last Filed: 04/02/24 19:28>
MDM/Problems Addressed
Differential Diagnosis Includes:
ddx include essential htn, htn secondary to pain, medication reaction, arrhythmia, heart failure, generalized anxiety,
MDM/Problems Addressed:
74-year-old female with past medical history of IBS, GERD, hypertension presents emergency department today with concerns of high blood pressure. She notes that her blood pressure has been fluctuating for the past month. She takes 20 mg of
lisinopril once daily. She notes persistent pain in her left arm following her surgery last month. She was told to stop taking ibuprofen because of her blood pressure. Patient reports that ibuprofen is only thing that works. I suspect that her
pain is what has been driving her blood pressure up. Here in the emergency department, she is well-appearing, in no acute distress, has no signs or symptoms of end organ damage, kidney function at baseline, stressed optimal pain control, discussed
follow up appointment with primary. Discussed return precautions.
Chronic conditions affecting care:
HTN, GERD
<America Smith PA-C - Last Filed: 04/02/24 19:28>
*Pulse Oximetry
Patient hypoxic: no
*EKG
Interpreted by ED Provider?: Yes
EKG Intrepretation Date: 04/02/24
Interpretation: normal
Comparison EKG: changes noted (PVCs now present)
Heart Rate: 88
Rate: normal
Rhythm: sinus and PVC's
[place]: normal axis
Ischemia: no ischemia
*Critical Care Note
Total Time (30-74mins, 75-104mins- exclusive of procedures): Not Applicable
Data Reviewed
Review of Other/Old Records Reveals: Records (reviewed discharge summary from 02/29/24, patient seen for left humeral ORIF)
Source: patient and records
Prescriptions/Medications Considered But Not Given:
n/a
Further Testing Considered But Not Given:
n/a
<America Smith PA-C - Last Filed: 04/02/24 19:28>
Patient Management
Escalation/DeEscalation of care consider admission/obs:
Admit not indicated, patient stable for discharge
Discussed case with my ER attending
ED Attending Note
<America Smith PA-C - Last Filed: 04/02/24 19:28>
-
Portions of this chart may have been created with voice recognition software.� Occasional wrong word or��sound alike� substitutions may have occurred due to the inherent limitations of voice recognition software.
<Cy Padilla MD - Last Filed: 04/02/24 19:55>
ED Attending Note
Patient seen and examined by attending physician: Yes
ED Attending Note:
I have seen and evaluated the patient with a [id number] encounter. I have spoken to the advance practicer provider and involved in the medical history, the physical exam, medical decision making.
Evaluation and management service: agree unless noted differently below.
Results interpretation: agree unless noted differently below.
Focused HPI: 74-year-old female with history as documented presents for evaluation of asymptomatic hypertension. Has been having elevated blood pressure recently in the setting of recent shoulder surgery in mid February for humerus fracture. Blood
pressure spiked up to 180 today and so patient was brought to the ER for evaluation. She does admit that she has been having significant postoperative pain, has been hesitant to take pain medications because she is afraid of dizziness/side effects.
Physical exam: Hypertensive otherwise normal vitals. No gross neurologic deficits. No edema.
Medical Decision Makin-year-old female presents for asymptomatic hypertension in the setting of recent postoperative pain from shoulder surgery. She had screening labs sent off which were unremarkable�renal function is actually better than
baseline. EKG sinus rhythm with occasional PVCs. Had a long discussion with the patient�I suspect pain and anxiety are contributing to her increased blood pressure and for this reason I am hesitant to increase or add additional antihypertensives
at this point. We spoke about pain control strategy postoperatively and mitigating side effects particularly with opioids by taking lowest effective dose. She feels comfortable with this. Advised to follow blood pressure over the next few days
and follow-up with PCP. All questions answered.
Discharge Plan
Departure
Patient Disposition: Home (Routine Discharge)
Date of Disposition: 04/02/24
Time of Disposition: 17:13
Patient with high blood pressure during this ER visit?: Yes
Condition: Good
Discharge Problem:
Asymptomatic hypertension
Instructions: High Blood Pressure (DC), BLOOD PRESSURE
Prescriptions:
No Action
oxycodone 5 mg tablet
5 mg PO Q6H PRN (Reason: Pain) Qty: 7 0RF
lisinopril 20 mg Tablet
20 mg PO DAILY
omeprazole magnesium [Prilosec OTC] 20 mg Tablet,Delayed Release (Dr/Ec)
20 mg PO PRN PRN (Reason: GERD)
bupropion HCl 300 mg Tablet Extended Release 24 Hr
300 mg PO DAILY
cholecalciferol (vitamin D3) [Vitamin D3] 125 mcg (5,000 unit) Tablet
125 mcg PO DAILY
mecobalamin (vitamin B12) 5,000 mcg Tablet,Chewable
5,000 mcg PO DAILY
ibuprofen [Advil] 200 mg Tablet
600 mg PO Q6H PRN (Reason: pain)
ginkgo biloba
1 dose PO DAILY
Tylenol
500 mg PO Q6H PRN (Reason: pain)
sennosides [Senokot] 8.6 mg tablet
8.6 mg PO BID PRN (Reason: Constipation) Qty: 14 0RF
aspirin 325 mg tablet
325 mg PO DAILY Qty: 30 0RF
docusate sodium [Colace] 100 mg capsule
100 mg PO BID Qty: 14 0RF
acetaminophen 500 mg capsule
1,000 mg PO Q6H MDD 4000mg PRN (Reason: Pain) Qty: 60 0RF
doxycycline hyclate 100 mg capsule
100 mg PO BID Qty: 6 0RF
Activity Restrictions/Additional Instructions:
Thank you for visiting [facility]. Please call [phone] if you have any questions
Please return to the emergency department should you experience chest pain, visual changes, visual loss, weakness on one-sided body versus the other, difficulty speaking, confusion, lightheadedness, syncopal episodes, headaches, abdominal pain, or
any other signs or symptoms concerning to you.
Please call your primary care provider to schedule follow-up appointment to address your hypertension and determine the best pain management regimen.
Interventions
Interventions:
*Risk Screen - Suicide Last Done: 04/02/24 13:55
*General Assessment Last Done: 04/02/24 13:55
*Neglect/Abuse Screening Last Done: 04/02/24 17:23
ED- Fall Risk Assessment Last Done: 04/02/24 17:23
*ED COVID-19 Vaccine History Last Done: 04/02/24 13:55
*Nursing Disposition Last Done: 04/02/24 17:29
ED- Cardiac Assessment Last Done: 04/02/24 17:23
ED- Neurological Assessment Last Done: 04/02/24 17:23
ED- Pulmonary Assessment Last Done: 04/02/24 17:23
Discharge Date and Time
Discharge Date/Time: 04/02/24 17:31
Print Language: MONEGASQUE
[2024-04-02 16:20] VITALS: BP 193/104
[2024-04-02 17:00] VITALS: BP 202/113
[2024-04-02 17:22] VITALS: BMI 26.5
== END 2024-04-02 17:31 | disposition home or self-care (01) ==
LOC: EMR 13:53
PROVIDERS: Emergency Medicine; EMERGENCY PHYSICIAN Emergency Medicine; FAMILY PHYSICIAN Physician Assistant Medical
DX: I10 Essential (primary) hypertension (principal); K21.9 Gastro-esophageal reflux disease without esophagitis; K58.9 Irritable bowel syndrome, unspecified; I49.3 Ventricular premature depolarization; F41.9 Anxiety disorder, unspecified; Z79.899 Other long term (current) drug therapy
CPT/HCPCS: 99283; 80053; 85025; 93005

== ENCOUNTER 2024-06-12 08:44 | Emergency (ER) | payer MEDICARE, BC, SELFPAY ==
[2024-06-12 08:57] VITALS: BP 188/110
[2024-06-12] MEDS: NEURONTIN 100 MG PO (09:40)
[2024-06-12] MEDS: DELTASONE 50 MG PO (09:40)
--- NOTE | 2024-06-12 09:49 | ED.GENMED ---
History of Present Illness
General
Chief Complaint: Musculo-Skeletal Complaint
Source: patient and family
Exam Limitations: none
Time Seen by Provider: 06/12/24 09:17
Nursing documentation reviewed up to this point in time: agreed with
History of Present Illness
History of Present Illness:
74-year-old female with history as documented presents with her daughter for evaluation of hip/leg pain. Patient reports symptoms started on Sunday and have been constant since that time. She reports shooting pain in the posterior right hip
radiates down the back of the right thigh and then the medial right lower leg. Associated with paresthesias in the anterior lower leg. Seems to be worse in the morning and with certain movements/positions. She denies any motor weakness. She
denies any fall/trauma. She does have chronic low back pains no worse than usual. She does have a history of sciatica which presents similarly. Her only other complaints on review of systems are minor URI symptoms for the past few days�she says
she has had some hoarseness of voice, postnasal drip and mild cough.
Review of Systems
Review of Systems
All Other Systems: ROS reviewed and negative except as documented in HPI and ROS
Constitutional: Denies fever
EENT: Reports other (Hoarse voice, postnasal drip)
Respiratory: Reports cough; Denies trouble breathing
Cardiac: Denies chest pain
ABD/GI: Denies abdominal pain, nausea or vomiting
: Denies flank pain
Musculoskeletal: Reports back pain (Chronic unchanged) and other (Hip/leg pain); Denies neck pain
Neurological: Reports other (Paresthesia); Denies headache or weakness
Phy Exam
Physical Exam
Physical Exam:
General: Awake, alert, oriented x3; no acute distress
Head: Normocephalic, atraumatic
Eyes: Conjunctiva normal
Throat: Airway intact, handling secretions
Neck: Trachea midline, supple without meningismus
Lungs: Clear to auscultation bilaterally, no wheezing, rales, rhonchi
Heart: Regular rate and rhythm
Abd: Soft, non distended, nontender
Back: No tenderness of the thoracic or lumbar spine; patient has positive straight leg raise on the right with bowstringing (symptoms relieved with flexion of the knee)
Neuro: Cranial nerves grossly intact, speech fluid, motor and sensory intact proximally distally in the right lower extremity
Extremities: No edema in extremities, equal pulses in all extremities, no reproducible tenderness in the hip on the right
Scores
Heart Failure Risk
Heart Failure Risk Score: Not Applicable
Heart Score for Chest Pain Patients
STEMI patient?: Not applicable
Withdrawal Assessment of Alcohol
Withdrawal Assessment Completed?: Not applicable
Course
Orders/Labs/Results
Orders:
Orders
06/12/24 09:18
CR Hip - RT w/wo Pel 2-3 Vw* Urgent
Comment:
Reason For Exam: right hip pain
Include a pelvis x-ray?: Yes
06/12/24 09:31
Gabapentin [Neurontin] 100 mg PO NOW STA
Prednisone [Deltasone] 50 mg PO NOW STA
Pt Eval And Treat Urgent
Treatment: R sciatica
Activity Level: With Assistance
06/12/24 12:04
Case Management Consult ONCE
Case Management Consult: VN/Home Care
Comment: home PT
Vital Signs
Initial and Last Documented VS:
Initial Vital Signs
Temp Pulse Resp BP Pulse Ox
36.4 C 79 16 188/110 97
06/12/24 08:57 06/12/24 08:57 06/12/24 08:57 06/12/24 08:57 06/12/24 08:57
Last Documented Vital Signs
Temp Pulse Resp BP Pulse Ox
36.4 C 79 16 188/110 97
06/12/24 08:57 06/12/24 08:57 06/12/24 08:57 06/12/24 08:57 01/30/25 08:57
MDM/Problems Addressed
Differential Diagnosis Includes:
Arthritis, bursitis, sciatica
MDM/Problems Addressed:
74-year-old female presents with right hip pain radiating down the leg associate with paresthesias. No fall or injury. Hypertensive otherwise normal vitals. Physical exam as above. History and exam are most consistent with diagnosis of
sciatica/radiculopathy. Will plan to treat with steroid, Neurontin; check x-ray of the hip for completeness but no reported fall. Will consult physical therapy to evaluate.
X-ray shows degenerative disease but no acute pathology. Patient ambulated with walker with physical therapy. Recommended for home physical therapy which we arranged through case management. Will treat with prednisone and gabapentin. I did reach
out to pain management to have patient seen in the office. Patient feels comfortable with this follow-up plan. All questions answered.
Chronic conditions affecting care:
Chronic low back pain/arthritis
Acute Exacerbation and/or Progression of Chronic Illness:
Acutely hypertensive likely pain related�treat symptoms but hold on emergent antihypertensives
Acute Exacerbation and/or Progression of Chronic Illness: HTN
*Radiology
Radiology exam reviewed: preliminary read by ED provider and radiology read reviewed
*Pulse Oximetry
Patient hypoxic: no
*Critical Care Note
Total Time (30-74mins, 75-104mins- exclusive of procedures): Not Applicable
Data Reviewed
Review of Other/Old Records Reveals: Labs and Records
Source: patient and family (Daughter)
Patient Management
Discussion with other providers: Other (Discussed with physical therapy)
ED Attending Note
-
Portions of this chart may have been created with voice recognition software.� Occasional wrong word or��sound alike� substitutions may have occurred due to the inherent limitations of voice recognition software.
Discharge Plan
Departure
Patient Disposition: Home (Routine Discharge)
Date of Disposition: 06/12/24
Time of Disposition: 13:12
Patient with high blood pressure during this ER visit?: Yes
Discharge Problem:
Sciatica, Hypertension
Instructions: Sciatica ED, Exercises for sciatic pain, BLOOD PRESSURE
Prescriptions:
New
prednisone 10 mg Tablet
See Rx Instructions .ROUTE .COMPLEX Qty: 30 0RF
Rx Instructions:
Take By Mouth:
40 mg daily x3 days, 30 mg daily x3 days,
20 mg daily x3 days, 10 mg daily x3 days.
gabapentin 100 mg capsule
100 mg PO BID Qty: 20 0RF
No Action
oxycodone 5 mg tablet
5 mg PO Q6H PRN (Reason: Pain) Qty: 7 0RF
lisinopril 20 mg Tablet
20 mg PO DAILY
omeprazole magnesium [Prilosec OTC] 20 mg Tablet,Delayed Release (Dr/Ec)
20 mg PO PRN PRN (Reason: GERD)
bupropion HCl 300 mg Tablet Extended Release 24 Hr
300 mg PO DAILY
cholecalciferol (vitamin D3) [Vitamin D3] 125 mcg (5,000 unit) Tablet
125 mcg PO DAILY
mecobalamin (vitamin B12) 5,000 mcg Tablet,Chewable
5,000 mcg PO DAILY
ibuprofen [Advil] 200 mg Tablet
600 mg PO Q6H PRN (Reason: pain)
ginkgo biloba
1 dose PO DAILY
Tylenol
500 mg PO Q6H PRN (Reason: pain)
sennosides [Senokot] 8.6 mg tablet
8.6 mg PO BID PRN (Reason: Constipation) Qty: 14 0RF
aspirin 325 mg tablet
325 mg PO DAILY Qty: 30 0RF
docusate sodium [Colace] 100 mg capsule
100 mg PO BID Qty: 14 0RF
acetaminophen 500 mg capsule
1,000 mg PO Q6H MDD 4000mg PRN (Reason: Pain) Qty: 60 0RF
doxycycline hyclate 100 mg capsule
100 mg PO BID Qty: 6 0RF
Referrals:
Jerel,Grant A., MD [Active] - Call in 1-3 days for appt (Pain Management--call first thing in the AM)
Anupama Chan PA-C [Family Provider] - Follow up in 5-7 days
Activity Restrictions/Additional Instructions:
Thank you for visiting the Emergency Department at [facility].
1. Please schedule a follow up appointment as directed. Call first thing tomorrow morning to make an appointment.
2. If indicated, please take your medications as instructed and indicated on discharge paperwork.
3. If any of your symptoms do not improve, or persist, or become more severe within 6-12 hours, please return to the emergency department for further care.
4. Please return to the emergency department if you develop a headache, neck pain/stiffness, fever greater than 100.4F, chest pain, shortness of breath, persistent nausea, vomiting, slurred speech, difficulty walking, numbness/tingling, weakness,
signs of infection or any other symptoms that are worrisome to you.
Please call [phone] if you have any questions.
Interventions
Interventions:
*Risk Screen - Suicide Last Done: 06/12/24 09:00
*General Assessment Last Done: 06/12/24 09:50
*Neglect/Abuse Screening Last Done: 06/12/24 09:00
ED- Fall Risk Assessment Last Done: 06/12/24 09:50
*ED COVID-19 Vaccine History Last Done: 06/12/24 09:50
ED-Musculoskeletal Assessment Last Done: 06/12/24 09:50
Discharge Date and Time
Print Language: JORDANIAN
[2024-06-12 11:27] VITALS: BP 202/111; PULSE 84
--- NOTE | 2024-06-12 13:31 | CM ---
Received CM consult. Reviewed the chart notes and spoke with the patient and her daughter at the bedside. The patient resides with her daughter in a two story home with three steps to enter. The patient has a cane and rolling walker. The patient
has had [facility] in the past, but no SNF. Patient confirmed her [facility] choice [facility]. Discussed area VNs, patient selected [facility]. CM continues to be available to patient/family and is monitoring medical plan for needs at
discharge.
Plan: Discharge to home with VN services.
== END 2024-06-12 13:52 | disposition home or self-care (01) ==
LOC: EMR 08:44
PROVIDERS: EMERGENCY PHYSICIAN Emergency Medicine; FAMILY PHYSICIAN Physician Assistant Medical
DX: M54.41 Lumbago with sciatica, right side (principal); I10 Essential (primary) hypertension; G89.29 Other chronic pain
CPT/HCPCS: 99283; 73502

== ENCOUNTER → 2024-07-12 09:11 | Outpatient (REF) | payer MEDICARE, BC, SELFPAY | LOC: MRI 3T 09:11 | PROVIDERS: ATTENDING PHYSICIAN Physical Medicine & Rehabilitation; FAMILY PHYSICIAN Physician Assistant Medical | DX: M54.16 Radiculopathy, lumbar region (principal) | CPT/HCPCS: 72148 ==

== ENCOUNTER 2024-08-08 10:05 | Inpatient (IN) | payer MEDICARE, BC, SELFPAY ==
[2024-08-07 22:02] VITALS: BP 187/97
[2024-08-08] VITALS (9 sets, daily range): BP systolic 117–200; BP diastolic 71–118; PULSE 90; O2SAT 96; BMI 26.0
--- NOTE | 2024-08-08 00:09 | ED.GENMED ---
History of Present Illness
<America Smith PA-C - Last Filed: 08/08/24 03:33>
General
Chief Complaint: Back Pain
Source: patient
Exam Limitations: none
Time Seen by Provider: 08/08/24 00:01
Nursing documentation reviewed up to this point in time: agreed with
History of Present Illness
History of Present Illness:
This is a 74-year-old female with past medical history of hypertension, GERD, IBS, who presents emergency department today with concerns of chronic right sided lower back pain that radiates down to the right leg. Patient states that this started
around 6 months ago and states that it has been persistent ever since. Patient states that she follows with Dr. Maradiaga with [facility] orthopedics and states that she had an MRI showing severe stenosis in her spine. She was also started on
gabapentin and oxycodone which she has been taking without relief. Patient received a steroid injection recently with Dr. Maradiaga which was supposed to last for multiple months which states it only lasted her 2 days. daughter present with patient
he reports that she has been unable to ambulate due to severe pain has not been getting off the couch. Patient reports that when she gets up, she falls back into the couch her daughter reports that she does not have the strength to help her up.
Daughter reports that she has a significant fall risk at home and that she needs much more support. Patient states that she denies any recent falls or new injuries. Patient denies any fevers or chills. Patient denies any urinary or fecal
incontinence. Patient denies any genital paresthesias. Patient states that she would like to talk to case management home nursing and does not feel that she be safely discharged. Patient does not want to go into a rehab facility.
Review of Systems
<America Smith PA-C - Last Filed: 08/08/24 03:33>
Review of Systems
All Other Systems: ROS reviewed and negative except as documented in HPI and ROS
Phy Exam
<America Smith PA-C - Last Filed: 08/08/24 03:33>
Physical Exam
Physical Exam:
General: Patient is well appearing and in no acute distress; non-toxic
Skin: Warm and dry, no rashes or lesions
Head: Normocephalic, atraumatic
Eyes: Sclera non-icteric. EOMs intact.
Cardiac: Regular rate and rhythm, no murmurs
Peripheral Vascular: No lower extremity swelling or edema
Pulm: Normal respiratory effort
Abdomen: No abdominal tenderness
Musculoskeletal: Significant right-sided para lumbar tenderness palpation. No midline spinal tenderness.
Neuro: CN II-XII intact, no focal neurologic deficits.
Psychiatric: Appropriate mood and affect.
Course
<America Smith PA-C - Last Filed: 08/08/24 03:33>
Orders/Labs/Results
Orders:
Orders
08/08/24 00:48
Acetaminophen 1000MG/100Ml [Ofirmev] 1,000 mg in 100 ml IV ONCE
Acetaminophen IV Indication:: ED Narcotic Naive Pt-ONCE
08/08/24 01:00
Dexamethasone Sod Phosphate [Decadron] 10 mg IV NOW STA
08/08/24 01:55
Lidocaine [Lidocaine 4% Patch] 1 patch TOPICAL DAILY ONE
Apply Lidocaine patch(s) to:: right low back
Oxycodone [Roxicodone] 5 mg PO NOW STA
08/08/24 03:24
Admit/Transfer Patient As Directed
Co-Sign Provider:
Level of Care: Observation services
Assign to:: Medical/Surgical
Physician / Group: hospitalist
Diagnosis: ambulatory dysfunction
PRN Pain Medication Management As Directed
May give lesser potent ordered pain med per pt: Yes
preference::
Protocol:: Medication orders for pain may be administered in a
manner that supports deferring to patient preference
when the pt is:
- Requesting an ordered lesser potent pain medication.
Least to most potent pain medications are defined
as: acetaminophen < NSAID < tramadol < opioids
(morphine, oxycodone, hydromorphone).
- Requesting a lesser dose of the same medication IF
ORDERED.
- Requesting a less intrusive route of administration
if both routes are prescribed by the provider (PO <
IV).
08/08/24 03:25
Code Status As Directed
Resuscitation Status: Full Code
Vital Signs
Initial and Last Documented VS:
Initial Vital Signs
Temp Pulse Resp BP Pulse Ox
98.1 F 78 18 187/97 98
08/07/24 22:02 08/07/24 22:02 08/07/24 22:02 08/07/24 22:02 08/07/24 22:02
Last Documented Vital Signs
Temp Pulse Resp BP Pulse Ox
98.1 F 82 18 192/98 97
08/07/24 22:02 08/08/24 02:15 08/08/24 02:15 08/08/24 02:15 08/08/24 02:34
<Kirt Xie, DO - Last Filed: 08/08/24 02:47>
Orders/Labs/Results
Orders:
Orders
08/08/24 00:48
Acetaminophen 1000MG/100Ml [Ofirmev] 1,000 mg in 100 ml IV ONCE
Acetaminophen IV Indication:: ED Narcotic Naive Pt-ONCE
08/08/24 01:00
Dexamethasone Sod Phosphate [Decadron] 10 mg IV NOW STA
08/08/24 01:55
Lidocaine [Lidocaine 4% Patch] 1 patch TOPICAL DAILY ONE
Apply Lidocaine patch(s) to:: right low back
Oxycodone [Roxicodone] 5 mg PO NOW STA
08/08/24 03:24
Admit/Transfer Patient As Directed
Co-Sign Provider:
Level of Care: Observation services
Assign to:: Medical/Surgical
Physician / Group: hospitalist
Diagnosis: ambulatory dysfunction
PRN Pain Medication Management As Directed
May give lesser potent ordered pain med per pt: Yes
preference::
Protocol:: Medication orders for pain may be administered in a
manner that supports deferring to patient preference
when the pt is:
- Requesting an ordered lesser potent pain medication.
Least to most potent pain medications are defined
as: acetaminophen < NSAID < tramadol < opioids
(morphine, oxycodone, hydromorphone).
- Requesting a lesser dose of the same medication IF
ORDERED.
- Requesting a less intrusive route of administration
if both routes are prescribed by the provider (PO <
IV).
08/08/24 03:25
Code Status As Directed
Resuscitation Status: Full Code
Vital Signs
Initial and Last Documented VS:
Initial Vital Signs
Temp Pulse Resp BP Pulse Ox
98.1 F 78 18 187/97 98
08/07/24 22:02 08/07/24 22:02 08/07/24 22:02 08/07/24 22:02 08/07/24 22:02
Last Documented Vital Signs
Temp Pulse Resp BP Pulse Ox
98.1 F 82 18 192/98 97
08/07/24 22:02 08/08/24 02:15 08/08/24 02:15 08/08/24 02:15 08/08/24 02:34
<America Smith PA-C - Last Filed: 08/08/24 03:33>
MDM/Problems Addressed
Differential Diagnosis Includes:
Sciatica, paralumbar strain, osteoarthritis, ambulatory dysfunction
MDM/Problems Addressed:
74-year-old female presents emergency department today with concerns of chronic right-sided back pain. Patient states has been going on for multiple months now but states that the past week its gotten a lot worse. On physical exam, patient is
well-appearing no acute distress however she does appear uncomfortable secondary to pain she does have tenderness palpation in the right side of the back. She did have a recent MRI the beginning this month which showed severe stenosis and
degenerative changes. Considering patient has no midline spinal tenderness today and did not have any recent trauma, do not feel that further imaging is of much utility. Did offer morphine for patient's pain however patient states that she does
not want to be on something so strong however does report that she has been taking oxycodone at home without relief. Patient states that oral Tylenol does not help and she cannot take NSAIDs. Will trial IV Tylenol. Reviewed case with my ER
attending. Patient did try to ambulate with the nurses but could not take a few steps without unsteady gait and severe pain. Patient is a significant fall risk. Will refer for admission.
Chronic conditions affecting care:
Hypertension, hyperlipidemia, IBS, spinal stenosis
<America Smith PA-C - Last Filed: 08/08/24 03:33>
*Pulse Oximetry
Patient hypoxic: no
*Critical Care Note
Total Time (30-74mins, 75-104mins- exclusive of procedures): Not Applicable
Data Reviewed
Review of Other/Old Records Reveals: Records (Reviewed previous ER physician documentation from 06/12/2024 patient seen for hypertension)
<America Smith PA-C - Last Filed: 08/08/24 03:33>
Patient Management
Escalation/DeEscalation of care consider admission/obs:
admission indicated
ED Attending Note
<America Smith PA-C - Last Filed: 08/08/24 03:33>
-
Portions of this chart may have been created with voice recognition software.� Occasional wrong word or��sound alike� substitutions may have occurred due to the inherent limitations of voice recognition software.
<Kirt Xie DO - Last Filed: 08/08/24 02:47>
ED Attending Note
Patient seen and examined by attending physician: Yes
ED Attending Note:
Pleasant 74-year-old female with acute on chronic low back pain. Patient concerned because she is weak and cannot ambulate. Daughter is concerned for falls. After attempts to ambulate her here in the department, she was unable to support herself.
She lives alone but daughter has been visiting daily. Patient is already on oxycodone and gabapentin. Patient was seen in conjunction with the [facility]. I reviewed and agree with her history and treatment plan. Patient is awake alert and oriented,
moderate acute distress especially when attempting to move. At this point since patient is unable to ambulate and lives alone she will be brought into the hospital for continued testing.
Discharge Plan
Departure
Patient Disposition: Admit
Date of Disposition: 08/08/24
Time of Disposition: 02:07
Admit to: Med/Surg
Presentation/result/management discussed w/ accepting MD/DO: Hospitalist
Patient with high blood pressure during this ER visit?: Yes
Condition: Good
Discharge Problem:
Ambulatory dysfunction, Spinal stenosis, At high risk for falls
Prescriptions:
No Action
lisinopril 20 mg Tablet
20 mg PO DAILY
bupropion HCl 300 mg Tablet Extended Release 24 Hr
300 mg PO DAILY
gabapentin 600 mg Tablet
600 mg PO TID
furosemide [Lasix] 20 mg Tablet
20 mg PO DAILY
oxycodone 5 mg Tablet
5 mg PO Q6H PRN (Reason: pain)
Referrals:
Anupama Chan PA-C [Family Provider] -
Interventions
Interventions:
*Risk Screen - Suicide Last Done: 08/07/24 22:02
*General Assessment Last Done: 08/07/24 22:02
*Neglect/Abuse Screening Last Done: 08/07/24 22:38
*ED- Fall Risk Assessment Last Done: 08/07/24 22:02
*ED COVID-19 Vaccine History Last Done: 08/07/24 22:02
ED-Musculoskeletal Assessment Last Done: 08/07/24 22:46
Discharge Date and Time
Print Language: SETSWANA
[2024-08-08] MEDS: DECADRON 10 MG IV (01:01)
[2024-08-08] MEDS: OFIRMEV 100 IV (01:08)
[2024-08-08] MEDS: ROXICODONE 5 MG PO (02:40)
[2024-08-08] MEDS: LIDOCAINE 4% PATCH 1 PATCH TOPICAL (02:41)
--- NOTE | 2024-08-08 03:41 | HPS.HSE ---
Family Physician
-
Family Physician: Anupama Chan PA-C
Chief Complaint
-
Back pain
History of Present Illness
This is a 74-year-old female with past medical history significant for hypertension, and a recent history of low back pain who presents to the emergency department with exacerbation of her low back pain.
Patient report that she has been having symptoms of low back pain with radiation to the thigh especially on the right side for about 2 months. She has seen Ortho (Dr. Maradiaga) for evaluation and had an MRI of the lumbar spine. She tells me that she
has had multilevel degenerative disease. Most notable findings on the MRI are severe right and moderate left lateral recess stenosis at L4-L5. Severe right lateral recess stenosis at L2-L3. Mild to moderate spinal canal stenosis at L2-L3, moderate
stenosis at L4-L5. She reports that she is status post steroid injection about 1 week ago with significant relief of back pain symptoms. However over the last few days the back pain has reoccurred. She denies any exacerbating injury or falls.
She denies any numbness or tingling. She does report worsening weakness but this is due to pain rather than a focal deficit. She denies any incontinence of the bowel or bladder. She denies any difficulty with urination. She denies having any
fevers or chills. She did call orthopedic today and received an additional dose of oxycodone on top of the gabapentin 600 3 times daily that she takes. Despite the oxycodone the patient continued to have pain and decided come to the emergency
department. She has a follow-up appointment in about 1 week.
Intermittent department she was afebrile, she had a blood pressure ranging from 1 40-1 90 systolic, pulse was 82 and she was satting 98% on room air. Despite analgesics in the ED she continued to have pain and ambulatory difficulties so was
referred for admission.
Medical History
Past Medical History
Past Medical History: Reports GERD, HTN, Psychiatric (Anxiety/depression) and Other (Osteoporosis)
Past Surgical History: Reports , Gynocological (Tubal ligation), Orthopedic (Right total knee arthroplasty) and Other (Breast augmentation)
Social History
Tobacco: Non-smoker
Alcohol: None
Drug: None
Personal: Single
Living: With Family
Employment: Retired
Family History
Family History: Not pertinent
Allergies / Home Medications
Allergies reflects when Allergies were last updated in [facility].
Home Medications with original date entered in [facility]
Allergy/Medication List:
Allergies
Allergy/AdvReac Type Severity Reaction Status Date / Time
celecoxib Allergy Intermediate GI upset Verified 08/07/24 22:04
cephalexin Allergy Intermediate Gi upset Verified 08/07/24 22:04
ciprofloxacin Allergy Intermediate GI upset Verified 08/07/24 22:04
erythromycin base Allergy Intermediate GI upset Verified 08/07/24 22:04
Sulfa (Sulfonamide Allergy Intermediate GI upset Verified 08/07/24 22:04
Antibiotics)
Home Medications
bupropion HCl 300 mg 24 hr tablet, extended release 300 mg PO DAILY 02/26/24
lisinopril 20 mg tablet 20 mg PO DAILY 02/26/24
furosemide 20 mg tablet (Lasix) 20 mg PO DAILY 08/08/24
gabapentin 600 mg tablet 600 mg PO TID 08/08/24
oxycodone 5 mg tablet 5 mg PO Q6H PRN pain 08/08/24
Review of Systems
-
History Source: Patient
Constitutional: Reports No Symptoms
EENT: Reports No Symptoms
Respiratory: Reports No Symptoms
Cardiac: Reports No Symptoms
Abdomen/GI: Reports No Symptoms
Musculoskeletal: Reports Joint Pain
Skin: Reports No Symptoms
Neurological: Reports No Symptoms
Endocrine: Reports No Symptoms
Hematologic/Lymphatic: Reports No Symptoms
Psych: Reports No Symptoms
Physical Exam
Vital Signs
Vital Signs
Temp Pulse Resp BP Pulse Ox
98.1 F 82 18 192/98 97
08/07/24 22:02 08/08/24 02:15 08/08/24 02:15 08/08/24 02:15 08/08/24 02:34
Physical Exam
General: Well Developed, Well Nourished, No Apparent Distress and Comfortable (When not moving)
HEENT: NormoCephalic, Anicteric, Moist mucous membranes and Atraumatic
Respiratory: Clear
Cardiac: S1/S2 and Regular Rhythm
Breast: Deferred by me
GI: Soft, Non Tender, Non Distended and Normal Bowel Sounds
Rectal: Brown
Genito-urinary: Deferred by me
Musculoskeletal: No Clubbing, No Cyanosis and No Edema
Skin: Warm
Neuro: AO x 3 and Nonfocal/grossly intact
Hematologic/Lymphatic: No Lymphadenopathy
Psych: Calm
Data Reviewed
-
MRI: Report Reviewed by me
Old Records: Reviewed
Impression/Plan
-
IMPRESSION:
74-year-old female with history of backbone with multilevel degenerative disease of the lumbar spine affecting mostly the L2-L3 and L4-L5 segments status post MRI within the last 4 weeks presents to the emergency department with worsening episode of
back pain not relieved by home oxycodone and gabapentin. Initial treatment in the ED shows some improvement while patient is staying at rest but worsening pain with ambulation. She is unable to ambulate and Dilaudid/she cannot be taking care of at
home by daughter alone. Patient is reticent about any kind of rehab at this time.
PLAN:
Ambulatory dysfunction secondary to back pain
- admit to med/surg obs
- s/p recent injection
- start medrol dose staci
- pain control with acetaminophen, toradol and oxycodone prn
- topical lidocaine
- continue gabapentin 600 tid
- PT evaluation
- case management
HTN
- continue lisinopril 20 daily
- furosemide 20 daily
DVT PPX - SCDs for now
Code status - Full Code
[2024-08-08] MEDS: TORADOL 15 MG IV (04:25)
[2024-08-08] MEDS: MEDROL 24 MG PO (05:11)
--- NOTE | 2024-08-08 06:29 | PTCARENOTE ---
Patient arrived on unit @0438 via wheelchair from ED, stand and pivot at bedside. Patient AAOx3, skin assessment completed, oriented to unit, call tate within reach.
[2024-08-08 06:55] LABS: Hematocrit 34.9 % (37.0-47.0); Hemoglobin 11.5 g/dL (12.0-16.0); Mean Corpuscular Hgb 28.8 pg (27.0-31.0); Mean Corpuscular Volume 87.5 fL (81.0-99.0); Mean Platelet Volume 10.2 fL (7.4-10.4); Platelet Count 196 10^3/uL (130-400); Red Blood Cell Count 3.99 10^6/uL (4.20-5.40); Red Cell Dist. Width 14.7 % (11.5-14.5); White Blood Cell Count 3.5 10^3/uL (4.8-10.8)
[2024-08-08 07:09] LABS: Blood Urea Nitrogen 22 mg/dl (7-17); Carbon Dioxide 27 mmol/L (22-30); Chloride 107 mmol/L (98-107); Estimated Creatinine Clearance 36 ml/min; Glucose 134 mg/dl (70-99); Potassium 4.4 mmol/L (3.5-5.1); Sodium 140 mmol/L (135-145)
[2024-08-08] MEDS: WELLBUTRIN XL (24 hour extended release) 300 MG PO (07:33)
[2024-08-08] MEDS: LASIX 20 MG PO (07:33)
[2024-08-08] MEDS: TYLENOL 650 MG PO ×4 (07:33→20:29)
[2024-08-08] MEDS: ZESTRIL 20 MG PO (07:33)
[2024-08-08] MEDS: NEURONTIN 300 MG PO ×3 (07:59→21:44)
--- NOTE | 2024-08-08 14:02 | W.PN.HOSP.TC ---
Today's Communication/Plan
-
Assessment / Plan
Assessment / Plan
General: No Apparent Distress, Comfortable and Conversant
HEENT: NormoCephalic, Moist mucous membranes, Atraumatic
Respiratory: Clear and Non Labored Respirations
Cardiac: S1/S2 and Regular Rhythm; No Rub or Gallop
GI: Soft, Non Tender, Non Distended and Normal Bowel Sounds
Musculoskeletal: No Edema, no deformity, right buttock tenderness to palpation and discomfort with range of motion
: NO Shaffer
Neuro: Awake, Alert, AO x 3 and Nonfocal/grossly intact
Psych: Calm and Intact Judgment/Insight
Ms. Baxter is a 74-year-old female with a medical history of hypertension, chronic intermittent lumbar pain due to stenosis with right-sided sciatica (follows outpatient with orthopedist, Dr. Maradiaga), and anxiety and depression who presents with
significant low back pain and right-sided sciatica unrelieved by her home pain medications. She has been following with orthopedist (Dr. Maradiaga) and received a steroid injection last week with improvement in her symptoms. However her symptoms have
not returned.
Sciatica:
-Right-sided, chronic, recurrent
-Good outpatient orthopedic follow-up, recent steroid injection 1 week ago
-MRI shows significant multilevel degenerative disease involving her lumbar spine
-She was able to participate in physical therapy, PT/OT recommend home therapy
-Continue multimodal pain control with scheduled Tylenol and gabapentin, as needed oxycodone and Flexeril
Hypertension:
-Chronic, continue home lisinopril 20 mg daily
-Blood pressure initially uncontrolled likely due to pain, now improved
-Monitor
CODE STATUS: Full code
Anticipated Discharge: 24 - 48 hours
Subjective/Interval History
-
Date of Service: August 08, 2024
Patient was seen and examined at bedside this morning. She has ongoing right sided sciatic pain inhibiting her ability to ambulate. Continue pain control and awaiting PT/OT eval.
Objective Data
-
Labs:
Laboratory Results
08/08/24
06:29
WBC 3.5 L
Hgb 11.5 L
Hct 34.9 L
Plt Count 196
Sodium 140
Potassium 4.4
Chloride 107
Carbon Dioxide 27
BUN 22 H
Creatinine 1.2 H
Glucose 134 H
Calcium 10.0
Vital Signs:
Vital Signs
Temp Pulse Resp BP Pulse Ox
97.9 F 77 14 176/92 96
08/08/24 07:27 08/08/24 07:27 08/08/24 07:27 08/08/24 07:27 08/08/24 07:27
Review of Systems
-
History Source: Patient
All other systems: Reviewed and negative
Musculoskeletal: Reports Muscle Pain (Right-sided lumbar and buttock pain radiating down the back of her right leg)
Physical Exam
-
General: No Apparent Distress
[2024-08-08] MEDS: FLEXERIL 5 MG PO (15:14)
[2024-08-08] MEDS: LOVENOX 40 MG SC (17:05)
[2024-08-09] MEDS: TYLENOL 650 MG PO ×4 (00:17→12:40)
[2024-08-09] MEDS: DILAUDID 0.5 MG IV (03:56)
[2024-08-09 07:52] VITALS: BP 143/80
[2024-08-09] MEDS: ZESTRIL 20 MG PO (09:08)
[2024-08-09] MEDS: WELLBUTRIN XL (24 hour extended release) 300 MG PO (09:08)
[2024-08-09] MEDS: MEDROL 20 MG PO (09:08)
[2024-08-09] MEDS: NEURONTIN 300 MG PO (09:08)
[2024-08-09] MEDS: LASIX 20 MG PO (09:08)
--- NOTE | 2024-08-09 10:18 | CM ---
CM met with pt at bedside.
Pt resides with daughter in a 2SH with bedroom/bathroom on 2nd floor, LA on 1st. Full flight to second flr, + railing.
Prior to admission pt ambulates with cane for stability. Owns a RW. + [employer]. ind with amb and adl's.
Has HC history with [facility] and no SNF history.
PT recc home PT. Pt in agreement. Offered choice of agency. Preference is for [facility]. Will send referral via [facility].
Confirmed PCP is Anupama Chan and [facility] is [facility]. Reports + Prescription plan.
Discharge dispo: home with [facility] and daughter support. Family to transport.
--- NOTE | 2024-08-09 12:37 | W.DCSUMMARY ---
Discharge Summary
Discharge Data
Date of Admission: 08/08/24
Date of Discharge: 08/09/24
-
Pending Results: No
Hospital Course
Ms. Baxter is a 74-year-old female with a medical history of hypertension, chronic intermittent lumbar pain due to stenosis with right-sided sciatica (follows outpatient with orthopedist, Dr. Maradiaga), and anxiety and depression who presents with
significant low back pain and right-sided sciatica unrelieved by her home pain medications. She has been following with orthopedist (Dr. Maradiaga) and received a steroid injection last week with improvement in her symptoms. However her symptoms have
returned.
She has some relief with multimodal pain control although it is short-lived. She is able to tolerate physical therapy and PT/OT is recommended ongoing therapy at home. MRI from 07/12/2024 shows severe right and moderate left lateral recess stenosis
at L4-L5 and severe right lateral recess stenosis at L2-L3 which is likely the cause of her ongoing discomfort. She will need close follow-up with her primary orthopedist. It has also been recommended that she follow-up with a pain management
specialist.
Her multimodal pain regimen should consist of:
-Scheduled Tylenol 650 mg every 4-6 hours
-As needed oxycodone 5 mg every 6 hours for pain
-As needed cyclobenzaprine 5 mg every 8 hours for muscle spasm
-Diclofenac patch (can be purchased as [id number] at pharmacy, brand name Salonpas) to painful area of low back daily
Further adjustments to pain regimen can be made as needed by pain specialist, orthopedics, and primary care physician.
At time of hospital discharge she was medically stable. She will need close follow-up with her primary care physician.
General: No Apparent Distress, Comfortable and Conversant
HEENT: NormoCephalic, Moist mucous membranes, Atraumatic
Respiratory: Clear and Non Labored Respirations
Cardiac: S1/S2 and Regular Rhythm; No Rub or Gallop
GI: Soft, Non Tender, Non Distended and Normal Bowel Sounds
Musculoskeletal: No Edema, no deformity, right buttock tenderness to palpation and discomfort with range of motion
: NO Shaffer
Neuro: Awake, Alert, AO x 3 and Nonfocal/grossly intact
Psych: Calm and Intact Judgment/Insight
Discharge Plan
-
Patient Disposition: Home with Home Care
Discharge Diagnosis/Procedures: Amatory dysfunction secondary to back pain
Diet: No restrictions
Activity: As tolerated
Other Services: VN, PT and OT
Activity Restrictions/Additional Instructions:
Ms. Baxter is a 74-year-old female with a medical history of hypertension, chronic intermittent lumbar pain due to stenosis with right-sided sciatica (follows outpatient with orthopedist, Dr. Maradiaga), and anxiety and depression who presents with
significant low back pain and right-sided sciatica unrelieved by her home pain medications. She has been following with orthopedist (Dr. Maradiaga) and received a steroid injection last week with improvement in her symptoms. However her symptoms have
returned.
She has some relief with multimodal pain control although it is short-lived. She is able to tolerate physical therapy and PT/OT is recommended ongoing therapy at home. MRI from 07/12/2024 shows severe right and moderate left lateral recess stenosis
at L4-L5 and severe right lateral recess stenosis at L2-L3 which is likely the cause of her ongoing discomfort. She will need close follow-up with her primary orthopedist. It has also been recommended that she follow-up with a pain management
specialist.
Her multimodal pain regimen should consist of:
-Scheduled Tylenol 650 mg every 4-6 hours
-As needed oxycodone 5 mg every 6 hours for pain
-As needed cyclobenzaprine 5 mg every 8 hours for muscle spasm
-Diclofenac patch (can be purchased as [id number] at pharmacy, brand name Salonpas) to painful area of low back daily
Further adjustments to pain regimen can be made as needed by pain specialist, orthopedics, and primary care physician.
At time of hospital discharge she was medically stable. She will need close follow-up with her primary care physician.
Referrals:
Alex Maradiaga, DO [Non-Admitting Privileges] -
Anupama Chan PA-C [Family Provider] -
Prescriptions:
New
sennosides-docusate sodium 8.6-50 mg Tablet
1 tab PO BIDPRN PRN (Reason: constipation) 30 Days Qty: 60 0RF
Rx Instructions:
hold for diarrhea
acetaminophen 325 mg Tablet
650 mg PO Q4HWA 30 Days Qty: 360 0RF
cyclobenzaprine 10 mg Tablet
5 mg PO Q8HPRN PRN (Reason: muscle spasm) 30 Days Qty: 60 0RF
methylprednisolone [Medrol (Edilberto)] 4 mg tablets,dose pack
See Rx Instructions .ROUTE .COMPLEX Qty: 21 0RF
Rx Instructions:
for 6 days
diclofenac epolamine 1.3 % patch 24 hour
1 patch transdermal DAILY Qty: 15 0RF
Continued
lisinopril 20 mg Tablet
20 mg PO DAILY
bupropion HCl 300 mg Tablet Extended Release 24 Hr
300 mg PO DAILY
furosemide [Lasix] 20 mg Tablet
20 mg PO DAILY
oxycodone 5 mg Tablet
5 mg PO Q6H PRN (Reason: pain)
Changed
gabapentin 600 mg Tablet
300 mg PO TID Qty: 0 0RF
Discharge Orders:
Discharge Patient (As Directed); Ordered 08/09/24
Ordered By: Patel Park
Discharge Date and Time
Print Language: [place]
[2024-08-09 13:14] VITALS: BP 134/82
== END 2024-08-09 14:18 | disposition home health service (06) | DRG 552 ==
LOC: 3 WEST ACU 10:05
PROVIDERS: ADMITTING PHYSICIAN Internal Medicine; ATTENDING PHYSICIAN Internal Medicine; EMERGENCY PHYSICIAN Student in an Organized Health Care Education/Training Program; FAMILY PHYSICIAN Physician Assistant Medical
DX: M48.061 Spinal stenosis, lumbar region without neurogenic claudication (principal); M54.41 Lumbago with sciatica, right side; I10 Essential (primary) hypertension; F41.9 Anxiety disorder, unspecified; F32.A Depression, unspecified; Z96.651 Presence of right artificial knee joint; Z88.1 Allergy status to other antibiotic agents; Z88.2 Allergy status to sulfonamides; Z79.891 Long term (current) use of opiate analgesic; K21.9 Gastro-esophageal reflux disease without esophagitis; K58.1 Irritable bowel syndrome with constipation; M81.0 Age-related osteoporosis without current pathological fracture; Z91.81 History of falling
CPT/HCPCS: 80048; 85027; 96374; 96375; 97162; 97167; 99285

== ENCOUNTER → 2024-08-12 18:46 | Outpatient (REF) | payer MEDICARE, BC, SELFPAY | LOC: MRI 18:46 | PROVIDERS: ATTENDING PHYSICIAN Physical Medicine & Rehabilitation; FAMILY PHYSICIAN Nurse Practitioner Adult Health | DX: M54.16 Radiculopathy, lumbar region (principal) | CPT/HCPCS: 72148 ==

== ENCOUNTER 2024-08-22 21:16 | Emergency (ER) | payer MEDICARE, BC, SELFPAY ==
[2024-08-22 21:18] VITALS: BP 187/78
--- NOTE | 2024-08-22 22:05 | ED.GENMED ---
History of Present Illness
General
Chief Complaint: Foreign Body Removal
Source: patient and family
Time Seen by Provider: 08/22/24 21:34
History of Present Illness
History of Present Illness:
74-year-old female who states that for about a week she has had a piece of her hearing aid stuck in her right ear canal. She says she has been cleaning her right ear and has not been able to remove it. She has very minimal pain. She denies
drainage, fever, chills, tinnitus, vertigo, or other complaints.
Past History
Past History
ED Past Medical History: HTN
Social History
Tobacco: Non-smoker
Alcohol: None
Drug: None
Phy Exam
Physical Exam
Physical Exam:
GENERAL: Alert , in no apparent distress
EYE: pupils equal and reactive
NECK: Supple, no significant adenopathy.
ENT: o/p clr, mmm. R tm clear. FB noted in R canal...removed with aligator forceps after first instilling lido gel for analgesia. FB removed intact. Repeat exam, canal with min edema, no exudate, min abrasion at infer aspect of canal.
CARDIAC: Regular rate and rhythm .
LUNGS: Clear breath sounds bilaterally, no acute respiratory distress, no wheezes/rales/rhonchi
NEUROLOGICAL: Alert and oriented, no focal neuro deficits
SKIN: Warm and dry, skin intact.
MUSCULOSKELETAL: No edema, well perfused.
PSYCH: Normal and appropriate interaction.
Course
Orders/Labs/Results
Orders:
Orders
08/22/24 21:43
Lidocaine 2% [Lidocaine Uro-Jet 2%] 1 syringe .ROUTE .[facility]
Vital Signs
Initial and Last Documented VS:
Initial Vital Signs
Temp Pulse Resp BP Pulse Ox
97.8 F 71 20 187/78 99
08/22/24 21:18 08/22/24 21:18 08/22/24 21:18 08/22/24 21:18 08/22/24 21:18
Last Documented Vital Signs
Temp Pulse Resp BP Pulse Ox
97.8 F 71 20 187/78 99
08/22/24 21:18 08/22/24 21:18 08/22/24 21:18 08/22/24 21:18 08/22/24 21:18
*Critical Care Note
Total Time (30-74mins, 75-104mins- exclusive of procedures): Not Applicable
Update Note
Update Note:
Patient presents to the Emergency Department with __fb in ear canal
Number and Complexity of Problems Addressed at the Encounter
� Chronic conditions affecting care:
� Acute Exacerbation and/or Progression of Chronic Illness:
� Differential Diagnosis includes:but not limited to impacated fb, otitis externa, otitis media, etc etc
Amount and/or Complexity of Data to be Reviewed and Analyzed
� I performed an independent evaluation of and my interpretation is:
EKG:
CT:
Xrays:
Laboratory Studies:
Other:
� Review of other/old records reveals:
� Clinical information was obtained by an independent historian:
� Prescriptions/Medications Considered but not given:
� Further testing considered but not performed:
Risk of Complications and/or Morbidity or Mortality of Patient Management
� Social determinants of health affecting care:
� Discussion with other providers (PCP, Hospitalists, Consultants, etc):
� Escalation of care including admission/observation vs risk of discharge considered: fb removed as above, pt advised re:reasons to rted.
ED Attending Note
-
Portions of this chart may have been created with voice recognition software.� Occasional wrong word or��sound alike� substitutions may have occurred due to the inherent limitations of voice recognition software.
Discharge Plan
Departure
Patient Disposition: Home (Routine Discharge)
Date of Disposition: 08/22/24
Time of Disposition: 22:05
Patient with high blood pressure during this ER visit?: Yes
Condition: Good
Discharge Problem:
foreign body removal, ear canal
Instructions: Foreign Body in the Ear ED, BLOOD PRESSURE
Prescriptions:
No Action
lisinopril 20 mg Tablet
20 mg PO DAILY
bupropion HCl 300 mg Tablet Extended Release 24 Hr
300 mg PO DAILY
furosemide [Lasix] 20 mg Tablet
20 mg PO DAILY
sennosides-docusate sodium 8.6-50 mg Tablet
1 tab PO BIDPRN PRN (Reason: constipation) 30 Days Qty: 60 0RF
Rx Instructions:
hold for diarrhea
acetaminophen 325 mg Tablet
650 mg PO Q4HWA 30 Days Qty: 360 0RF
cyclobenzaprine 10 mg Tablet
5 mg PO Q8HPRN PRN (Reason: muscle spasm) 30 Days Qty: 60 0RF
methylprednisolone [Medrol (Edilberto)] 4 mg tablets,dose pack
See Rx Instructions .ROUTE .COMPLEX Qty: 21 0RF
Rx Instructions:
for 6 days
gabapentin 600 mg Tablet
300 mg PO TID Qty: 0 0RF
diclofenac epolamine 1.3 % patch 24 hour
1 patch transdermal DAILY Qty: 15 0RF
oxycodone 5 mg Tablet
5 mg PO Q6H PRN (Reason: pain) Qty: 12 0RF
Referrals:
Anupama Chan PA-C [Family Provider] - Follow up in 2-3 days
Activity Restrictions/Additional Instructions:
AVOID INSERTING ANYTHING INTO YOUR EAR INCLUDING YOUR HEARING AID FOR AT LEAST A WEEK. IF YOU DEVELOP FEVER, DRAINAGE, SWELLING, PAIN, RINGING IN YOUR EAR, OR OTHER WORRISOME SIGNS, PLEASE CONTACT YOUR DOCTOR OR RETURN TO THE ER IMMEDIATELY.
Interventions
Interventions:
*General Assessment Last Done: 08/22/24 21:18
Discharge Date and Time
Print Language: [id number]
== END 2024-08-22 22:16 | disposition home or self-care (01) ==
LOC: EMR 21:16
PROVIDERS: EMERGENCY PHYSICIAN Emergency Medicine; FAMILY PHYSICIAN Physician Assistant Medical
DX: T16.1XXA Foreign body in right ear, initial encounter (principal); W44.G1XA Audio device entering into or through a natural orifice, initial encounter; I10 Essential (primary) hypertension
CPT/HCPCS: 99282